=== PATIENT | female | born 1970 | race Caucasian/White ===

== ENCOUNTER → 2017-10-30 17:00 | Outpatient (CLI) | payer BC, SELFPAY ==
--- NOTE | 2017-10-30 17:09 | BI_ITS ---
MAMMOGRAPHY - BILATERAL SCREENING 3-D JAQUAN SYNTHESIS REASON FOR EXAM: Female, 46 years old. Bilateral Screening 3-D tomosynthesis PERTINENT HISTORY: No significant family history. TECHNIQUE: 2-D mammograms and 3-D Jaquan synthesis of the breast (s) were performed. CAD was performed. COMPARISON: None. FINDINGS: The breast composition is composed of scattered fibroglandular density. No dense spiculated masses or suspicious clustered microcalcifications are identified. No architectural distortion is identified. There is no skin thickening or retraction. BI/SCREENING MAMM (CAD), BILAT IMPRESSION: No mammographic signs of malignancy. Routine yearly mammograms recommended. ASSESSMENT CATEGORY: BIRADS Category 1: Negative. A letter regarding these results will be sent to the patient by the facility within 30 days. FOLLOW UP RECOMMENDATION: Yearly follow up mammogram recommended. (A) Approximately 10% of breast cancers are not detected by mammography. A normal mammogram should not delay biopsy of a clinically suspicious abnormality. Electronically Signed: Christos Esteves MD at 8:18 EDT , Service support ,
== END ==
PROVIDERS: Visit Provider Obstetrics & Gynecology
DX: Z12.31 Encounter for screening mammogram for malignant neoplasm of breast (principal)
CPT/HCPCS: 77063; 77067

== ENCOUNTER 2020-02-18 13:17 | Emergency (ER) | payer OTHER, SELFPAY ==
[2020-02-18] VITALS (14 sets, daily range): BP systolic 105–137; BP diastolic 42–96; PULSE 65–93; RESP 16–18; TEMP 36.9–37.3; O2SAT 99–100; BMI 26.2
--- NOTE | 2020-02-18 13:46 | ED.DCSUM_ITS ---
- ER Visit Summary Date of Service: 02/18/20 Chief Complaint: [] History of Present Illness: The patient is a 49 F [] Physical Examination: [] Test Results: [] Emergency Department Course and Treatment: [] Treatment Plan: [] Disposition: [] Impression: [] This note was generated with [employer] dictation software. It may contain incorrect words, spelling, and punctuation that were not noted in review of the chart prior to signing ED Disposition - Plan for ED Patient: Referrals: Jason Adamson DO [Primary Care Provider] -
--- NOTE | 2020-02-18 13:47 | ED.DCSUM_ITS ---
History of Present Illness Chief Complaint: Abn Labs Informant: Patient Narrative: 49-year-old female presenting with history of anemia primary care doctor sent her in for a blood transfusion for steadily decreasing hemoglobins. Patient states that she had been taking Protonix for acid reflux and after this she started having some bloody stools. She states that she stopped taking the medication after 2 days and she does not have any blood in her stool anymore. She states that she initially saw her physician about 6 days ago when this occurred. Patient was sent for outpatient lab work which showed a hemoglobin of 6.9. Patient also had a partial polypectomy the week before she had bloody stools. She was told that it was a complex polyp and she needed to go to [facility] to have it removed. She denies any melena. She states that they also did an upper endoscopy at the time and her stomach did not have any ulcers. She has not had any abdominal pain. Patient admitted to heavy menstrual cycles as well as bleeding hemorrhoids. Dates that her PCP checked a Hemoccult and it was negative. She states that she is lightheaded when she bends down to tie her shoes and stands up. She has not fallen. She is not had any syncope. Past Medical History - Allergies and Home Meds Allergies/Adverse Reactions: Allergies No Known Allergies Allergy (Verified 02/18/20 13:17) Primary Care Physician: Jason Adamson DO [Primary Care Provider] - Prior records reviewed: Yes Past Medical History: - - Anemia, GERD Lives: With Family Smoking Status: Never smoker Alcohol: None Drugs: None Review of Systems General: Reports: - - Lightheadedness with standing. Denies: Chills, Fever Eyes: Denies: Visual changes - bilaterally, Diplopia ENT: Denies: Rhinorrhea, Sore throat Cardiovascular: Denies: Chest pain, Palpitations Respiratory: Denies: Dyspnea, Cough, Dyspnea on exertion Gastrointestinal: Reports: Hematochezia. Denies: Abdominal pain, Nausea, Vomiting, Diarrhea, Melena Genitourinary: Denies: Dysuria Musculoskeletal: Denies: Myalgias, Arthralgias Skin: Denies: Rash Neurological: Denies: Headache, Weakness Physical Exam Vital Signs/Narrative: Vital Signs Temp Pulse Resp BP Pulse Ox 02/18/20 13:18 99.2 F H 79 16 137/68 H 99 Inital Vital Signs reviewed: Yes General: Well nourished, Well developed Head: Normocephalic Eyes: Perrl, EOMI, Pale conjunctiva ENT: Moist mucous membranes Cardiovascular: Regular rate, Regular rhythm Respiratory: No distress Abdomen: Soft, Nontender, Nondistended Rectal: Deferred Extremities: No edema Skin: Normal color. Negative for: Pallor Neurological: Alert, Oriented x3 Psychological: Normal affect Diagnostic/Tx/Re-eval Laboratory Data 02/18/20 02/18/20 02/18/20 14:16 14:16 14:16 WBC 2.9 L RBC 3.60 L Hgb 6.4 L Hct 24.2 L MCV 67.2 L MCH 17.8 L MCHC 26.4 L RDW Std Deviation 49.3 H RDW Coeff of Pablo 20.6 H Plt Count 183 MPV 9.6 Immature Gran % (Auto) 0.000 Neut % (Auto) 55.3 Lymph % (Auto) 34.0 Pender % (Auto) 7.6 Eos % (Auto) 2.1 Baso % (Auto) 1.0 Absolute Neuts (auto) 1.6 L Absolute Lymphs (auto) 0.98 Nucleated RBC % 0 Anisocytosis 1+ Sodium 143 Potassium 3.6 Chloride 109 H Carbon Dioxide 28.0 Anion Gap 6 BUN 6 L Creatinine 0.64 Estim Creat Clear Calc 85.95 Est GFR (MDRD) Af Amer 129 Est GFR (MDRD) Non-Af 106 BUN/Creatinine Ratio 9.4 L Glucose 96 Calcium 8.5 Total Bilirubin 0.30 AST 14 L ALT 13 Alkaline Phosphatase 59 Total Protein 6.7 Albumin 3.7 Globulin 3.0 Albumin/Globulin Ratio 1.2 Blood Type O POSITIVE Antibody Screen NEGATIVE Crossmatch See Detail - Medical Decision Making Patient presents with anemia. She states that it has been a chronic issue but is a lot lower than it usually is. She has not required blood transfusion in the past. She had upper endoscopy which was negative. She had a colonoscopy with partial polypectomy a week prior to the symptoms of blood in her stool. Th is is resolved. She is had a negative occult stool by her PCP. She is orthostatic negative. I did recheck her hemoglobin and it is 6.4. Patient was consented for blood transfusion. [facility] physician wanted her to get transfused blood. I will transfuse her 2 units and send her home. Impression: 1. Anemia 2. History of blood in stool resolved ED Disposition - Plan for ED Patient: Disposition: Home or Assisted Living Instructions: ED Anemia Type Not Specified Referrals: Jason Adamson DO [Primary Care Provider] -
[2020-02-18 14:31] LABS: Absolute Lymphocyte Count 0.98 X10^3/uL (0.83-4.51); Absolute Neutrophil Count 1.6 X10^3/uL (2.0-7.7); Basophil# 0.03 X10^3/uL; Differential Indicated SCAN CRITERIA MET; Eosinophil# 0.06 X10^3/uL; Eosinophils% 2.1 % (0-5); Hematocrit 24.2 % (37-47); Hemoglobin 6.4 g/dL (12.0-15.0); Lymphocyte # 0.98 X10^3/ul (4.0); Mean Corp Hgb Conc 26.4 g/dL (32-36); Mean Corpuscular Hgb 17.8 pg (27.0-32.0); Mean Corpuscular Volume 67.2 fL (81-99); Mean Platelet Vol. 9.6 fl (6.2-12.0); Monocyte# 0.22 X10^3/uL; Monocyte% 7.6 % (0-10); NRBC Flagged by Analyzer 0 % (0-5); Neutrophil # 1.59 X10^3/uL (2.7-7.7); Neutrophil % 55.3 % (47-70); POSITIVE MORPHOLOGY YES; Platelet Count 183 K/mm3 (150-450); RBC Distribution Width CV 20.6 % (11.6-14.6); RBC Distribution Width SD 49.3 fl (35.1-43.9); White Blood Count 2.9 K/mm3 (4.4-11.0)
[2020-02-18 14:48] LABS: ALB/GLOB Ratio 1.2 RATIO (0.9-2.4); AST(SGOT) 14 U/L (15-37); Alanine Aminotransfer ALT/SGPT 13 U/L (13-56); Albumin, Serum 3.7 g/dL (3.2-5.0); Alkaline Phosphatase 59 U/L (45-117); Anion Gap 6 (5-15); Anisocytosis 1+; BUN 6 mg/dL (7-18); BUN/Creat Ratio 9.4 RATIO (10-20); Calcium,Total 8.5 mg/dL (8.5-10.1); Chloride 109 mmol/L (98-107); Creatinine, Serum 0.64 mg/dL (0.55-1.02); EST Glomerular Filtration Rate 106 mL/min (>60); Est Glom Filt Rate - Afr Amer 129 mL/min (>60); Estimated Creatinine Clearance 85.95 ml/min; Glucose 96 mg/dL (74-106); Potassium 3.6 mmol/L (3.5-5.1); Protein, Total 6.7 g/dL (6.4-8.2); Sodium Level 143 mmol/L (136-145)
== END 2020-02-18 20:07 | disposition home or self-care (01) ==
PROVIDERS: Emergency Provider Student in an Organized Health Care Education/Training Program; PCP Student in an Organized Health Care Education/Training Program
DX: D64.9 Anemia, unspecified (principal); K92.1 Melena; R42 Dizziness and giddiness; K21.9 Gastro-esophageal reflux disease without esophagitis
CPT/HCPCS: 36430; 80053; 85025; 86850; 86900; 86901; 86920; 86922; 99285; J7040; P9016; A4216